=== PATIENT | male | born 1975 | race Caucasian/White ===

== ENCOUNTER 2025-03-17 10:24 | Emergency (ER) | payer MEDICARE, MEDICAID, SELFPAY ==
--- NOTE | 2025-03-17 10:38 | ED_ITS ---
HPI - Psych General Chief Complaint: Extremity Problem,Nontraumatic Stated Complaint: foot pain Time Seen by Provider: 03/17/25 10:37 Source: patient and EMS Mode of arrival: ambulatory Limitations: no limitations History of Present Illness HPI Narrative: a 49-year-old male with a history of smoking, hypertension arthritis, schizophrenia/ bipolar on aripiprazole was admitted at [facility] from 02/26/2025to 03/08/2025. he subsequently presented to Dr. Rosario vogt on 03/15/2025. His medications weight changed. He was taken off nifedipine and hydralazine. This morning when the patient got his medications they appear different. The patient -- blood concerned about his change of medications. He felt that someone was trying to change his medicines. -- Complains of leg swelling -- complains of joint pain -- patient is confused. no focal neuro deficit. on presentation he wanted to leave AMA while he was being questioned about his medications denies suicidal or homicidal ideation. Duration: constant History of same: Yes Relieving factors: none Exacerbating factors: none Context: recent drug abuse Associated symptoms: confusion Treatments prior to arrival: none Related Data Home Medications ?Medication ?Instructions ?Recorded ?Confirmed ?Last Taken ?Type aripiprazole 10 mg tablet mg 03/17/25 Unknown History losartan 50 mg tablet mg 03/17/25 Unknown History naproxen 500 mg tablet mg 03/17/25 Unknown History propranolol 40 mg tablet mg 03/17/25 Unknown History Allergies Allergy/AdvReac Type Severity Reaction Status Date / Time Penicillins Allergy Mild Rash Verified 03/17/25 10:53 Review of Systems 2 Review of Systems: vitals are stable All systems reviewed & are unremarkable except as noted in HPI and below Constitutional: Constitutional: Reports as per HPI and Reports no additional constitutional complaints Eyes: Eyes: Reports as per HPI and Reports no additional eye complaints ENT: Reports system reviewed and no additional complaints, except as documented and Reports as per HPI Cardiovascular: Cardiovascular: Reports as per HPI and Reports no additional cardiovascular complaints Respiratory: Respiratory: Reports as per HPI and Reports no additional respiratory complaints Gastrointestinal: Gastrointestinal: Reports as per HPI and Reports no additional gastrointestinal complaints Genitourinary: Genitourinary: Reports no additional male genitourinary complaints and Reports as per HPI Musculoskeletal: Musculoskeletal: Reports no additional musculoskeletal complaints, Reports as per HPI and Reports arthralgias Integumentary/Breasts: Skin/Breast: Reports system reviewed and no additional complaints, except as docu and Reports as per HPI Neurologic: Reports system reviewed and no additional complaints, except as documented and Reports as per HPI Psychiatric: Psychiatric: Reports no additional psychiatric complaints and Reports as per HPI Comments: denies suicidal or homicidal ideation. Patient is confused Endocrine: Endocrine: Reports no additional endocrine complaints and Reports as per HPI Hematologic/Lymphatic: Hematologic/Lymphatic: Reports no additional hematologic/lymphatic complaints and Reports as per HPI Allergic/Immunologic: Allergic/Immunologic: Reports no additional allergic/immunologic complaints and Reports as per HPI [facility] Past Medical History Medical History (Updated 03/17/25 @ 12:00 by Fredrick Velazquez MD) Schizophrenia Arthritis Hypertension Social History Social History (Updated 03/17/25 @ 11:21 by Fredrick Velazquez MD) Social History: smoker, amphetamine use Exam 2 Narrative: vitals are stable. Const: General: no acute distress Other: Patient is confused. HENMT: Head: normal to inspection Ears: external ears normal F franklyn/Nose/Sinus: Normal external nose present Mouth: Yes Normal oral and palatal mucosa present Throat: posterior oropharynx normal Eyes: Conjunctivae: conjunctivae normal Pupils: Equal, round and reactive pupils present EOM: EOMs intact bilaterally Direct Ophthalmoscopy: no photophobia Neck: Neck: normal visual inspection, no lymphadenopathy and no meningeal signs Chest: Chest palpation & inspection: normal inspection of the chest Resp: Effort & Inspection: normal respiratory effort Auscultation: clear to auscultation bilaterally Cardio: Rate: regular rate Rhythm: regular rhythm GI: GI Palp: Yes Soft to palpation Auscultation: normal bowel sounds O ther: No tenderness/ rigidity/ rebound. : General: Yes no CVA tenderness Back/Spine/Pelvis: Back: no CVA tenderness Skin: General skin exam: normal color Rashes: no rashes Wounds: no wounds Neuro: General: patient oriented x3, moves all extremities, no meningeal signs, no focal motor deficits and CN's II-XI intact bilaterally Cranial nerves: Yes Nystagmus not present Speech: normal speech Gait exam (Neuro): Normal gait present Extrem: General: normal to inspection and no clubbing, cyanosis or edema Psych: Mental Status: mental status grossly normal Other: Patient is confused. He thought that the morning medicines which he received were incorrect. No suicidal or homicidal ideation. Patient is talking to himself. Appears to have hallucinations. No delusions noted. Course Course Emergency Course: Altered mental status/ confusion Anemia transaminitis MDM - Psych MDM Narrative Medical decision making narrative: confusion anemia transaminitis Differential Diagnosis Differential diagnosis: Likely chronic schizophrenia Lab Data Attestation: I reviewed the patient's lab results. 03/17/25 10:38 03/17/25 10:38 Labs: Lab Results 03/17/25 03/17/25 03/17/25 Range/Units 10:38 10:39 11:16 WBC 7.6 (4.8-10.8) K/mm3 RBC 4.33 L (4.70-6.10) M/mm3 Hgb 12.5 L (14.0-18.0) g/dL Hct 38.8 L (40.0-54.0) % MCV 89.6 (78.0-102.0) fL MCH 28.9 (27.0-31.0) pg MCHC 32.2 (32-36) g/dL RDW 13.4 (11.6-14.4) % Plt Count 349 (150-420) K/mm3 MPV 9.4 (8.7-11.0) fl Immature Gran % (Auto) Not Reportable Neut % (Auto) Not Reportable Lymph % (Auto) Not Reportable [place] % (Auto) Not Reportable Eos % (Auto) Not Reportable Baso % (Auto) Not Reportable Lymph # (Auto) Not Reportable [place] # (Auto) Not Reportable Eos # (Auto) Not Reportable Baso # (Auto) Not Reportable Abs Immat Gran (auto) Not Reportable Absolute Neuts (auto) Not Reportable Absolute Nucleated RBC Not Reportable Total Counted 100 Neutrophils % (Manual) 62 (46-73) % Band Neutrophils % 0 (0-6) % Lymphocytes % (Manual) 24 (18-44) % Monocytes % (Manual) 7 (3-9) % Eosinophils % (Manual) 7 H (1-6) % Nucleated RBC % Not Reportable Abs Neuts (Manual) 4.71 (1.3-6.7) K/mm3 Abs Lymphs (Manual) 1.82 (1.1-4.5) K/mm3 Abs Monocytes (Manual) 0.53 (0.1-0.90) K/mm3 Absolute Eos (Manual) 0.53 H (0.02-0.50) K/mm3 Platelet Estimate Adequate (Adequate) Schistocytes Not Reportable PT 10.3 (9.50-12.1) Seconds INR 0.9 Sodium 141 (136-145) mmol/L Potassium 4.5 (3.5-5.1) mmol/L Chloride 104 (98-108) mmol/L Carbon Dioxide 29 (21-32) mmol/L Anion Gap 8 (4-12) mmol/L BUN 7 (7-18) mg/dL Creatinine 0.81 (0.70-1.30) mg/dL Estim Creat Clear Calc Not Reportable Estimated GFR > 60 (59 - ) Glucose 91 (70-99) mg/dL Calculated Osmolality 290 (285-295) mOsm/kg Lactic Acid 1.1 (0.4-2.0) mmol/L Calcium 9.2 (8.5-10.1) mg/dL Total Bilirubin 0.3 (0.00-1.00) mg/dL AST 23 (15-37) U/L ALT 71 H (16-63) U/L Alkaline Phosphatase 83 (46-116) U/L Troponin I 6.1 (0.00-60.4) ng/L Total Protein 7.0 (6.4-8.2) g/dL Albumin 3.6 (3.4-5.0) g/dL Lipase 19 (16-77) U/L TSH 1.97 (0.36-3.74) uIU/mL Urine Color Light yellow (Yellow) Urine Appearance Clear (Clear) Urine pH 7.0 (5.0-8.0) Ur Specific [place] <= 1.005 L (1.010-1.020) Urine Protein Negative (Negative) Urine Glucose (UA) Negative (Negative) Urine Ketones Negative (Negative) Ur Blood (Man) Negative (Negative) Urine Nitrate Negative (Negative) Urine Bilirubin Negative (Negative) Urine Urobilinogen 0.2 (0.2-1.0) mg/dL Leukocyte Esterase Rfl Negative (Negative) KATIE/UL Urine Opiates Screen Negative (Negative) Urine Methadone Screen Negative (Negative) Ur Barbiturates Screen Negative (Negative) Ur Phencyclidine Scrn Negative (Negative) Ur Amphetamine Screen Negative (Negative) U Benzodiazepines Scrn Negative (Negative) Urine Cocaine Screen Negative (Negative) U Cannabinoids Screen Negative (Negative) ECG Data EKG #1: ECG completion date: 03/17/25 ECG completion time: 10:50 Interpretation: normal sinus rhythm. Normal axis. No ST elevation. Prominent Q-waves in septal leads suggestive of an old anteroseptal infarct. Discharge Plan Discharge Clinical Impression: Transaminitis Altered mental status Qualifiers: Altered mental status type: disorientation Qualified Code(s): R41.0 - Disorientation, unspecified Patient Disposition: Home Condition: Stable Instructions: Antibiotic Form, Altered Mental Status (ED) Patient Language: Slovenian Prescriptions: No Action losartan 50 mg tablet propranolol 40 mg tablet naproxen 500 mg tablet aripiprazole 10 mg tablet Follow-up/Referrals: Bora Berumen MD [Primary Care Provider] - Time of Disposition: 12:00
--- NOTE | 2025-03-17 10:39 | ECG_ITS ---
Test Date: 2025-03-17 10:50:36 Measurements Intervals [place] Rate: 73 P: 68 ND: 149 QRS: 80 QRSD: 84 T: 75 QT: 378 QTc: 417 Interpretive Statements SINUS RHYTHM CANNOT R/O SEPTAL INFARCT, AGE INDETERMINATE PEAKED T WAVES- CONSIDER HYPERKALEMIA BASELINE ARTIFACT- I, III, AVR, AVL, AVF, V1-V2, V4-V6 ABNORMAL ECG No previous ECG available for comparison Electronically Signed On 03-17-2025 10:51:19 CDT by Darvin Chacko D.O.
[2025-03-17 10:52] LABS: Hematocrit 38.8 % (40.0-54.0); Hemoglobin 12.5 g/dL (14.0-18.0); Mean Corpuscular HGB Conc 32.2 g/dL (32-36); Mean Corpuscular Hemoglobin 28.9 pg (27.0-31.0); Mean Corpuscular Volume 89.6 fL (78.0-102.0); Mean Platelet Volume 9.4 fl (8.7-11.0); Platelet Count Result 349 K/mm3 (150-420); Red Blood Count 4.33 M/mm3 (4.70-6.10); Red Cell Distribution Width 13.4 % (11.6-14.4); White Blood Count 7.6 K/mm3 (4.8-10.8)
[2025-03-17 11:08] LABS: INR 0.9; Prothrombin Time 10.3 Seconds (9.50-12.1)
[2025-03-17] MEDS: HALOPERIDOL LACTATE 5 MG/ML VIAL 2.5 MG IM (11:10)
[2025-03-17 11:20] LABS: Band Neutrophils Percent 0 % (0-6); Eosinophils Absolute Manual 0.53 K/mm3 (0.02-0.50); Eosinophils Percent Manual 7 % (1-6); Lymphocytes Absolute Manual 1.82 K/mm3 (1.1-4.5); Lymphocytes Percent Manual 24 % (18-44); Monocytes Absolute Manual 0.53 K/mm3 (0.1-0.90); Monocytes Percent Manual 7 % (3-9); Neutrophils Absolute Manual 4.71 K/mm3 (1.3-6.7); Neutrophils Percent Manual 62 % (46-73); Platelet Estimate Adequate (Adequate); Total Cells Counted 100
[2025-03-17 11:24] LABS: Lactic Acid Reflex 1.1 mmol/L (0.4-2.0)
[2025-03-17 11:26] LABS: Alanine Aminotransferase 71 U/L (16-63); Albumin Level 3.6 g/dL (3.4-5.0); Alkaline Phosphatase 83 U/L (46-116); Anion Gap 8 mmol/L (4-12); Aspartate Amino Transferase 23 U/L (15-37); Bilirubin,Total 0.3 mg/dL (0.00-1.00); Blood Urea Nitrogen 7 mg/dL (7-18); Calcium 9.2 mg/dL (8.5-10.1); Carbon Dioxide 29 mmol/L (21-32); Chloride 104 mmol/L (98-108); Estimated Glomerular Filt Rate > 60; Glucose 91 mg/dL (70-99); Osmolality Calculated 290 mOsm/kg (285-295); Potassium 4.5 mmol/L (3.5-5.1); Sodium 141 mmol/L (136-145)
[2025-03-17 11:28] LABS: Lipase 19 U/L (16-77); Thyroid Stimulating Hormone 1.97 uIU/mL (0.36-3.74); Troponin I 6.1 ng/L (0.00-60.4)
[2025-03-17 11:32] LABS: Add Urine Microscopic? NO; Appearance Urine Clear (Clear); Bilirubin Urine Negative (Negative); Blood Urine Negative (Negative); Color Urine Light Yellow (Yellow); Glucose Urine UA Negative (Negative); Ketones Urine Negative (Negative); Leukocyte Esterase Ur Negative LEU/UL (Negative); Nitrate Urine Negative (Negative); Protein Urine Negative (Negative); Specific Grav Ur <= 1.005 (1.010-1.020); Urobilinogen Urine 0.2 mg/dL (0.2-1.0)
--- NOTE | 2025-03-17 11:32 | PC.NURSE ---
meal tray ordered for pt.
[2025-03-17 11:36] LABS: Amphetamine Screen Urine Negative (Negative); Barbiturate Screen Urine Negative (Negative); Benzodiazepines Screen Urine Negative (Negative); Cannabinoid Screen Urine Negative (Negative); Cocaine Screen Urine Negative (Negative); Methadone Screen Urine Negative (Negative); Opiate Screen Urine Negative (Negative); Phencyclidine Screen Urine Negative (Negative)
[2025-03-17 12:33] VITALS: BP 171/104; PULSE 86; RESP 18; TEMP 36.8; O2SAT 100
--- NOTE | 2025-03-17 12:40 | PC.NURSE ---
call to nazario lu for picking tech. explained workup given to pt. will picking tech marge
== END 2025-03-17 12:38 | disposition home or self-care (01) ==
PROVIDERS: Emergency Provider Internal Medicine Critical Care Medicine; PCP Family Medicine
DX: R74.01 Elevation of levels of liver transaminase levels (principal); R41.0 Disorientation, unspecified; I10 Essential (primary) hypertension; Z79.899 Other long term (current) drug therapy; Z79.1 Long term (current) use of non-steroidal anti-inflammatories (NSAID)
CPT/HCPCS: 36415; 80053; 80307; 81003; 83605; 83690; 84443; 84484; 85025; 85610; 93005; 96372; 99284; J1630

== ENCOUNTER 2025-10-16 08:55 | Emergency (ER) | payer MEDICARE, MEDICAID, SELFPAY ==
[2025-10-16] VITALS (25 sets, daily range): BP systolic 107–152; BP diastolic 69–104; PULSE 64–70; RESP 15–18; TEMP 36.4–37.1; O2SAT 95–100
--- NOTE | ~2025-10-16 | CT_ITS ---
CHEST ABDOMEN PELVIS WITH CONTRAST CLINICAL HISTORY: RUQ abdominal pain, intermittent chest pain, hematuria . COMPARISON: None TECHNIQUE: Helical CT performed from thoracic inlet to symphysis pubis 100 mL Omnipaque 350 Coronal, sagittal reformats. Multi planar MIPS CT images acquired with automatic exposure control for dose reduction DLP: 771 mGy-cm FINDINGS: CHEST- Lungs/Pleura: A few calcified granuloma right lung. Tiny nodule right middle lobe anteriorly, no surveillance indicated given small size. Thoracic Aorta: No dissection. No aneurysm. Pulmonary arteries: Normal caliber. Heart: Mildly enlarged. Tracheobronchial tree: Patent. Nodes: No enlarged nodes. Right hilar calcification. Bones: No acute bony abnormality. Soft tissues: Absent right pectoralis muscles. ABDOMEN/PELVIS- Liver: Enlarged. Steatosis. Gallbladder: Unremarkable. Spleen: Unremarkable. Pancreas: Unremarkable. Adrenal glands: Unremarkable. Kidneys: Right kidney- No hydronephrosis. No renal stones. Focal ill-defined heterogeneous enhancement. Left kidney- No hydronephrosis. No renal stones. Distal esophagus/stomach: Unremarkable. Small bowel loops: Normal caliber and wall thickness. Colon: Diverticula. Normal caliber and wall thickness. Normal RLQ appendix. Nodes: No enlarged nodes. Peritoneum: No ascites. No free air. Urinary bladder: Wall thickening. Intramural abscess anteriorly. 3 cm. Prostate: Unremarkable. Bones: No acute bony abnormality. Soft tissues: Unremarkable. Aorta: No aneurysm or dissection. Atherosclerotic disease. IVC: Unremarkable. Main portal vein/SMV/splenic vein: Patent. IMPRESSION: CHEST- 1. No acute abnormality. 2. Absent right pectoralis muscles. ABDOMEN/PELVIS- 1. 3 cm abscess anterior wall urinary bladder. Possibly sequela of prior diverticulitis. 2. Superimposed cystitis. 3. Pyelonephritis right kidney. Reviewed, dictated and finalized at location R. PT GIRL IMPRESSION: CHEST- 1. No acute abnormality. 2. Absent right pectoralis muscles. ABDOMEN/PELVIS- 1. 3 cm abscess anterior wall urinary bladder. Possibly sequela of prior diver ticulitis. 2. Superimposed cystitis. 3. Pyelonephritis right kidney.
--- OUTSIDE RECORDS SUMMARY | 2025-10-16 08:57 | XMS_ITS ---
Author Organization Unknown Address [address] [place] [address] [phone] Phone Care Team Providers Care State Editor Name Role Phone CEE Booth Attending Unavailable Social History Type Status Start Date End Date Code Code Syst em Sex Male Medications Medication Start Date End Date Route Frequency Dose Code Code System Medication Instructions Home Meds ARIPiprazole 10MG Oral Tablet 06/10/2025 Unknown ORAL ONCE A DAY 10 MILLIGRAMS [id number] RxNorm TAKE 10 MILLIGRAMS ORAL ONCE A DAY Acetaminophen 325MG Oral Tablet 06/10/2025 Unknown ORAL NEEDED EVERY 6 HOURS 650 MILLIGRAMS [id number] RxNorm TAKE 650 MILLIGRAMS ORAL NEEDED EVERY 6 HOURS Losartan Potassium 50MG Oral Tablet 06/10/2025 Unknown ORAL ONCE A DAY 50 MILLIGRAMS [id number] RxNorm TAKE 50 MILLIGRAMS ORAL ONCE A DAY Naprosyn 500MG Oral Tablet 06/10/2025 Unknown ORAL TWICE A DAY 500 MILLIGRAMS 942165 RxNorm TAKE 500 MILLIGRAMS ORAL TWICE A DAY Propranolol HCl 40MG Oral Tablet 06/10/2025 Unknown ORAL TWICE A DAY 40 MILLIGRAMS 635624 RxNorm TAKE 40 MILLIGRAMS ORAL TWICE A DAY hydrOXYzine HCl 25MG Oral Tablet 06/10/2025 Unknown ORAL NEEDED EVERY 8 HOURS 25 MILLIGRAMS 963942 RxNorm TAKE 25 MILLIGRAMS ORAL NEEDED EVERY 8 HOURS traZODone hydrochloride 50MG Oral Tablet 06/10/2025 Unknown ORAL ONCE A DAY 50 MILLIGRAMS 641699 RxNorm TAKE 50 MILLIGRAMS ORAL ONCE A DAY Hospital Discharge Instructions Should you have any questions prior to discharge, please contact a member of your healthcare team. If you have left the hospital and have any questions, please contact your primary care physician. Reason For Referral No Data Found Allergies and Adverse Reactions Allergy Substance Reaction Severity Start Date Concern Status Co de Code System PCN (penicillin) Active 635102427 SNOME D-CT Plan of Treatment Colonoscopy 06/10/2025 Encounters Encounter Diagnosis Start Date Code Code Sys tem Encounter for screening for malignant neoplasm of colo n 05/14/2025 SNOMED-CT Personal Care Team Section
--- OUTSIDE RECORDS SUMMARY | 2025-10-16 08:58 | XMS_ITS ---
Author Organization Unknown Address [address] [place] [address] [phone] Phone Care Team Providers Care Drop Hammer Operator Helper Name Role Phone EVELIA Noble Attending Unavailable MELLISA CARUSO CLINICAL STAFF RN Unavailable NO PCP Primary Unavailable Social History Type Status Start Date End Date Code Code Syst em Sex Male Vital Signs Vital Sign Value Unit Chaplin Value Chaplin Unit Date/Time Recent/Initial? Code Code System Body Mass Index 28.06 kg/m2 06/10/2025 13:46 Most Recent 45838 -5 LOINC Body Mass Index 27.91 kg/m2 06/01/2025 14:24 Initial 73878 -5 LOINC Systolic Blood Pressure 124 mm[Hg] 06/10/2025 13:46 Initial 8480- 6 LOINC Diastolic Blood Pressure 70 mm[Hg] 06/10/2025 13:46 Initial 8462- 4 LOINC Body Surface Area 2.05 m2 06/10/2025 13:46 Most Recent 3140- 1 LOINC Body Surface Area 2.04 m2 06/01/2025 14:24 Initial 3140- 1 LOINC Height 175.260 0 cm 69.00 in 06/10/2025 13:46 Most Recent 8302- 2 LOINC Height 175.260 0 cm 69.00 in 06/01/2025 14:24 Initial 8302- 2 LOINC O2 Saturation 97 % 2024 13:46 Initial 98089 -5 LOINC Pulse 75.0 /min 06/10/2025 13:46 Initial 8867- 4 LOINC Respiration 18 /min 06/10/20 13:46 Initial 9279- 1 LOINC Temperature 36.5 Yumiko 97.7 F 06/10/20 13:46 Initial 8310- 5 LOINC Weight 86.18 kg 190.00 lbs 06/10/2025 13:46 Most Recent 48415 -7 [facility] Weight 85.73 kg 189.00 lbs 06/01/2025 14:24 Initial 50543 -7 [facility] Medications Medication Start Date End Date Route Frequency Dose Code Code System Medication Instructions Home Meds ARIPiprazole 10MG Oral Tablet 06/10/2025 Unknown ORAL ONCE A DAY 10 MILLIGRAMS [id number] RxNorm TAKE 10 MILLIGRAMS ORAL ONCE A DAY Acetaminophen 325MG Oral Tablet 06/10/2025 Unknown ORAL NEEDED EVERY 6 HOURS 650 MILLIGRAMS 936017 RxNorm TAKE 650 MILLIGRAMS ORAL NEEDED EVERY 6 HOURS Losartan Potassium 50MG Oral Tablet 06/10/2025 Unknown ORAL ONCE A DAY 50 MILLIGRAMS 583803 RxNorm TAKE 50 MILLIGRAMS ORAL ONCE A DAY Naprosyn 500MG Oral Tablet 06/10/2025 Unknown ORAL TWICE A DAY 500 MILLIGRAMS 436676 RxNorm TAKE 500 MILLIGRAMS ORAL TWICE A DAY Propranolol HCl 40MG Oral Tablet 06/10/2025 Unknown ORAL TWICE A DAY 40 MILLIGRAMS 763344 RxNorm TAKE 40 MILLIGRAMS ORAL TWICE A DAY hydrOXYzine HCl 25MG Oral Tablet 06/10/2025 Unknown ORAL NEEDED EVERY 8 HOURS 25 MILLIGRAMS 568237 RxNorm TAKE 25 MILLIGRAMS ORAL NEEDED EVERY 8 HOURS traZODone hydrochloride 50MG Oral Tablet 06/10/2025 Unknown ORAL ONCE A DAY 50 MILLIGRAMS 641912 RxNorm TAKE 50 MILLIGRAMS ORAL ONCE A DAY Hospital Discharge Instructions Should you have any questions prior to discharge, please contact a member of your healthcare team. If you have left the hospital and have any questions, please contact your primary care physician. Reason For Referral No Data Found Procedures Procedure Name Date Status Code Code Syste m Hand surgery completed [id number] SNOMEDCT Anesthesia for lower intesti nal endoscopic procedures, endoscope introduce 06/10/2025 completed 20613 CPT Colonoscopy, flexible; with biopsy, single or multiple 06/10/2025 completed 05738 CPT Allergies and Adverse Reactions Allergy Substance Reaction Severity Start Date Concern Status Co de Code System PCN (penicillin) Active 682869504 SNOME D-CT Plan of Treatment Colonoscopy 06/10/2025 Encounters Encounter Diagnosis Start Date Code Code Sys tem Encounter for screening for malignant neoplasm of colo n 06/10/2025 SNOMED-CT Personal Care Team Section Procedures Notes [facility] 06/10/2025 14:47 ASHER EMANUEL MD, FACG, FACP COLONOSCOPY Date of Service: 06/10/2025 INDICATION: Screening for colon cancer. POST-OP: One small colon polyp removed. Mild diverticulosis. SEDATION: Per Anesthesia PREP: Good. With the patient in the left lateral decubitus position, the Olympus [id number] colonoscope was introduced into the rectum and advanced easily to the Terminal Ileum. Careful inspection of the mucosa was made upon insertion and withdrawal of the endoscope. FINDINGS: Terminal ileum: distal 5 cm normal. Cecum and rectum including retroflexion normal. Ascending colon, transverse colon, descending colon, sigmoid colon: mild diverticulosis. Ascending colon: diminutive polyp removed with cold jumbo biopsy forceps. No masses, AVMs, colitis seen. No complications, blood loss or implants. ASSESSMENT AND PLAN: A. Mild diverticulosis: asymptomatic; observe. B. Screening for colon cancer: - No family history of colon cancer - Patient has never had colonoscopy - Screening colonoscopy 06/10/2025 with one diminutive colon poly removed - If adenoma surveillance colonoscopy 5 years otherwise screening colonoscopy in 10 years Thank you for allowing me to care for your patient. He will follow-up with Sr. Berumen as needed. Asher Emanuel M.D. (c) [phone]
--- NOTE | 2025-10-16 09:02 | ECG_ITS ---
Test Date: 2025-10-16 09:12:10 Measurements Intervals [place] Rate: 65 P: 45 IN: 161 QRS: 13 QRSD: 83 T: 33 QT: 397 QTc: 415 Interpretive Statements SINUS RHYTHM POSSIBLE LEFT ATRIAL ENLARGEMENT [-0.1mV P-WAVE IN V1/V2] SEPTAL MYOCARDIAL INFARCTION , PROBABLY OLD [40+ ms Q WAVE IN V1/V2] Compared to ECG 03/17/2025 10:50:36 No significant changes Electronically Signed On 10-18-2025 12:09:42 CROSSING WATCHMAN by Cuauhtemoc Rivers M.D.
--- NOTE | 2025-10-16 09:06 | ED_ITS ---
HPI - General Adult General Chief complaint: Urogenital-Male Stated complaint: blood in urine; rib pain Time Seen by Provider: 10/16/25 08:57 History of Present Illness HPI narrative: Leroy is a 50M with a PMH of schizophrenia, arthritis, HTN, that presented to the ED from [facility] not feeling well. A few days ago he had epigastric pain and chest pain and many episodes of vomiting. The CP improved but he now has dark urine, hematospermia, right flank pain, and RUQ pain as well as weakness. No dyspnea, fevers or hematochezia reported. Related Data Home Medications ?Medication ?Instructions ?Recorded ?Confirmed ?Last Taken ?Type aripiprazole 10 mg tablet mg 03/17/25 Unknown History losartan 50 mg tablet mg 03/17/25 Unknown History naproxen 500 mg tablet mg 03/17/25 Unknown History propranolol 40 mg tablet mg 03/17/25 Unknown History Allergies Allergy/AdvReac Type Severity Reaction Status Date / Time Penicillins Allergy Mild Rash Verified 03/17/25 10:53 Review of Systems 2 Review of Systems: All systems reviewed & are unremarkable except as noted in HPI and below [facility] Past Medical History Medical History Schizophrenia Arthritis Hypertension Social History Social History Social History: smoker, amphetamine use Exam 2 Const: General: cooperative, healthy appearing, comfortable, no acute distress, well developed, alert, awake and Physically active O rientation/consciousness: oriented to person, oriented to place and oriented to time HENMT: Head: normal to inspection, normocephalic and atraumatic Ears: h earing grossly normal bilaterally and external ears normal Face/Nose/Sinus: N ormal external nose present Eyes: General: appearance normal, both eyes and all related structures P eriorbital: periorbital findings normal Sclera: sclerae normal Pupils: E qual, round and reactive pupils present Neck: Neck: normal visual inspection Chest: Chest palpation & inspection: normal inspection of the chest Resp: Effort & Inspection: normal respiratory effort, able to speak in complete sentences and no respiratory distress Auscultation: clear to auscultation bilaterally Cardio: Jugular venous distension: no JVD Rate: regular rate Rhythm: r egular rhythm GI: Inspection: non-distended GI Palp: Yes Soft to palpation, Yes Tenderness to palpation present (GI), No Guarding due to palpation present (GI) and No Rebound tenderness present Auscultation: normal bowel sounds Other: +Kurtz sign. : Other: Right flank pain Skin: General skin exam: normal color and no rashes or lesions noted Neuro: General: oriented to person, oriented to place and oriented to time Cranial nerves: Yes Equal, round and reactive pupils present Extrem: General: normal to inspection Other: right hand deformity clubbed fingers Course Course Emergency Course: Ordered fluids, pain meds, labs, EKG and CT. EKG showed NSR with a rate of 65, normal axis, and no ST elevation/depression CT chest/abdomen/pelvis: IMPRESSION: CHEST- 1. No acute abnormality. 2. Absent right pectoralis muscles. ABDOMEN/PELVIS- 1. 3 cm abscess anterior wall urinary bladder. Possibly sequela of prior diverticulitis. 2. Superimposed cystitis. 3. Pyelonephritis right kidney. I spoke with Dr. Hidalgo of urology that recommended transfer and admit to hospitalist and to place a catheter Leroy was transferred to [place] for Urology services. Vital Signs Vital signs: Vital Signs Temperature 97.5 F L 10/16/25 08:55 Pulse Rate 65 10/16/25 08:55 Respiratory Rate 16 10/16/25 08:55 Blood Pressure 107/76 10/16/25 08:55 Pulse Oximetry 99 10/16/25 08:55 Oxygen Delivery Room Air 10/16/25 08:55 Temperature 98.7 F 10/16/25 13:18 Pulse Rate 66 10/16/25 13:18 Respiratory Rate 18 10/16/25 13:18 Blood Pressure 128/77 10/16/25 13:18 Pulse Oximetry 96 10/16/25 13:18 Oxygen Delivery Room Air 10/16/25 13:18 Medical Decision Making Vital Signs Vital Signs: Vital Signs Temperature 97.5 F L 10/16/25 08:55 Pulse Rate 65 10/16/25 08:55 Respiratory Rate 16 10/16/25 08:55 Blood Pressure 107/76 10/16/25 08:55 Pulse Oximetry 99 10/16/25 08:55 Oxygen Delivery Room Air 10/16/25 08:55 Temperature 98.7 F 10/16/25 13:18 Pulse Rate 66 10/16/25 13:18 Respiratory Rate 18 10/16/25 13:18 Blood Pressure 128/77 10/16/25 13:18 Pulse Oximetry 96 10/16/25 13:18 Oxygen Delivery Room Air 10/16/25 13:18 Lab Data 10/16/25 09:09 10/16/25 09:09 Labs: Lab Results 10/16/25 10/16/25 10/16/25 Range/Units 09:02 09:09 09:19 WBC 7.1 (4.8-10.8) K/mm3 RBC 4.47 L (4.70-6.10) M/mm3 Hgb 13.1 L (14.0-18.0) g/dL Hct 38.9 L (40.0-54.0) % MCV 87.0 (78.0-102.0) fL MCH 29.3 (27.0-31.0) pg MCHC 33.7 (32-36) g/dL RDW 12.1 (11.6-14.4) % Plt Count 333 (150-420) K/mm3 MPV 9.4 (8.7-11.0) fl Immature Gran % (Auto) 0.6 H (0.0-0.0) % Neut % (Auto) 59.3 (50.0-70.0) % Lymph % (Auto) 23.9 (18.0-42.0) % [place] % (Auto) 9.2 (2.0-11.0) % Eos % (Auto) 6.2 H (1.0-6.0) % Baso % (Auto) 0.8 (0.0-1.0) % Lymph # (Auto) 1.69 (1.10-4.50) K/mm3 [place] # (Auto) 0.65 (0.10-0.90) K/mm3 Eos # (Auto) 0.44 (0.02-0.50) K/mm3 Baso # (Auto) 0.06 (0.00-0.10) K/mm3 Abs Immat Gran (auto) 0.04 H (0.00-0.00) K/mm3 Absolute Neuts (auto) 4.19 (1.70-7.20) K/mm3 Absolute Nucleated RBC 0.00 (0.00-0.00) K/mm3 Nucleated RBC % 0.0 (0-0.0) % Sodium 139 (137-145) mmol/L Potassium 3.8 (3.4-5.0) mmol/L Chloride 102 (98-107) mmol/L Carbon Dioxide 26 (22-30) mmol/L Anion Gap 11 (4-12) mmol/L BUN 14 (9-20) mg/dL Creatinine 0.76 (0.7-1.3) mg/dL Estim Creat Clear Calc 111 ml/min Estimated GFR > 60 (59 - ) Glucose 116 H (65-110) mg/dL Calculated Osmolality 289 (285-295) mOsm/kg Calcium 8.9 (8.4-10.2) mg/dL Total Bilirubin 1.2 (0.2-1.3) mg/dL AST 38 (17-59) U/L ALT 51 H (6-50) U/L Alkaline Phosphatase 81 (38-126) U/L Troponin I < 0.012 (0.000-0.034) ng/mL Total Protein 6.8 (6.3-8.2) g/dL Albumin 4.1 (3.5-5.1) g/dL Urine Color Dark yellow (Yellow) Urine Appearance Cloudy A (Clear) Urine pH 5.5 (5.0-8.0) Ur Specific [place] 1.025 H (1.010-1.020) Urine Protein Trace H (Negative) Urine Glucose (UA) Negative (Negative) Urine Ketones Negative (Negative) Ur Blood (Man) 2+ H (Negative) Urine Nitrate Negative (Negative) Urine Bilirubin Negative (Negative) Urine Urobilinogen 1.0 (0.2-1.0) mg/dL Leukocyte Esterase Rfl 2+ H (Negative) KATIE/UL Urine RBC 3-5 H (0-2) /hpf Urine WBC >75 H (0-3) /hpf Urine Bacteria 1+ H (None) /hpf Urine Mucus Few H /lpf C. trachomatis (PCR) Pending N. gonorrhoeae (PCR) Pending Discharge Plan Discharge Clinical Impression: Urinary tract infection, Acute pyelonephritis, Abscess of bladder Patient Disposition: Acute Care Hospital Condition: Serious Patient Language: Kinyarwanda Prescriptions: No Action losartan 50 mg tablet propranolol 40 mg tablet naproxen 500 mg tablet aripiprazole 10 mg tablet Follow-up/Referrals: Bora Berumen MD [Primary Care Provider, Internal Medicine]
[2025-10-16 09:18] LABS: Hematocrit 38.9 % (40.0-54.0); Hemoglobin 13.1 g/dL (14.0-18.0); Immature Granulocyte Percent A 0.6 % (0.0-0.0); Lymphocytes Absolute Auto 1.69 K/mm3 (1.10-4.50); Mean Corpuscular HGB Conc 33.7 g/dL (32-36); Mean Corpuscular Hemoglobin 29.3 pg (27.0-31.0); Mean Corpuscular Volume 87.0 fL (78.0-102.0); Nucleated Red Blood Cells Absolute Auto 0.00 K/mm3 (0.00-0.00); Nucleated Red Blood Cells Perc 0.0 % (0-0.0); Platelet Count Result 333 K/mm3 (150-420); Red Blood Count 4.47 M/mm3 (4.70-6.10); White Blood Count 7.1 K/mm3 (4.8-10.8)
[2025-10-16 09:19] LABS: Add Urine Microscopic? YES; Appearance Urine Cloudy (Clear); Glucose Urine UA Negative (Negative); Leukocyte Esterase Ur 2+ LEU/UL (Negative); Nitrate Urine Negative (Negative); Specific Grav Ur 1.025 (1.010-1.020)
[2025-10-16] MEDS: SODIUM CHLORIDE 0.9% IV 1,000 ML 999 ML IV CONT (09:21)
[2025-10-16] MEDS: MORPHINE SULFATE (*CRX) 4 MG/ML INJ 2 MG IV PUSH (09:22)
[2025-10-16 09:29] LABS: Alanine Aminotransferase 51 U/L (6-50); Albumin Level 4.1 g/dL (3.5-5.1); Alkaline Phosphatase 81 U/L (38-126); Anion Gap 11 mmol/L (4-12); Aspartate Amino Transferase 38 U/L (17-59); Blood Urea Nitrogen 14 mg/dL (9-20); Calcium 8.9 mg/dL (8.4-10.2); Carbon Dioxide 26 mmol/L (22-30); Chloride 102 mmol/L (98-107); Estimated CRCL calculation 111 ml/min; Estimated Glomerular Filt Rate > 60; Glucose 116 mg/dL (65-110); Osmolality Calculated 289 mOsm/kg (285-295); Potassium 3.8 mmol/L (3.4-5.0); Sodium 139 mmol/L (137-145); Total Protein 6.8 g/dL (6.3-8.2)
[2025-10-16 09:41] LABS: Troponin I < 0.012 ng/mL (0.000-0.034)
--- OUTSIDE RECORDS SUMMARY | 2025-10-16 10:08 | XMS_ITS ---
Author Organization Unknown Address [address] [place] [phone] Phone Care Team Providers [employer]ic Name Role Phone EVELIA Noble Attending Unavailable MELLISA CARUSO [employer]TER Unavailable NO PCP Primary Unavailable Social History Type Status Start Date End Date Code Code Syst em Sex Male Vital Signs Vital Sign Value Unit Griffith Value Griffith Unit Date/Time Recent/Initial? Code Code System Body Mass Index 28.06 kg/m2 06/10/2025 13:46 Most Recent 60389 -5 LOINC Body Mass Index 27.91 kg/m2 06/01/2025 14:24 Initial 70889 -5 LOINC Systolic Blood Pressure 124 mm[Hg] [...] O2 Saturation 97 % 2024 13:46 Initial 66020 -5 LOINC Pulse 75.0 /min 06/10/2025 13:46 Initial 8867- 4 LOINC Respiration 18 /min 06/10/20 13:46 Initial 9279- 1 LOINC Temperature 36.5 Yumiko 97.7 F 06/10/20 13:46 Initial 8310- 5 LOINC Weight 86.18 kg 190.00 lbs 06/10/2025 13:46 Most Recent 22087 -7 [facility] Weight 85.73 kg 189.00 lbs 06/01/2025 14:24 Initial 80965 -7 [facility] Medications Medication Start Date End Date Route Frequency Dose Code Code System Medication Instructions Home Meds ARIPiprazole 10MG Oral Tablet 06/10/2025 Unknown ORAL ONCE A DAY 10 MILLIGRAMS 374506 RxNorm TAKE 10 MILLIGRAMS ORAL ONCE A DAY Acetaminophen 325MG Oral Tablet 06/10/2025 Unknown ORAL NEEDED EVERY 6 HOURS 650 MILLIGRAMS 189864 RxNorm TAKE 650 MILLIGRAMS ORAL NEEDED EVERY 6 HOURS Losartan Potassium 50MG Oral Tablet 06/10/2025 Unknown ORAL ONCE A DAY 50 MILLIGRAMS 345956 RxNorm TAKE 50 MILLIGRAMS ORAL ONCE A DAY Naprosyn 500MG Oral Tablet 06/10/2025 Unknown ORAL TWICE A DAY 500 MILLIGRAMS 559204 RxNorm TAKE 500 MILLIGRAMS ORAL TWICE A DAY Propranolol HCl 40MG Oral Tablet 06/10/2025 Unknown ORAL TWICE A DAY 40 MILLIGRAMS 439835 RxNorm TAKE 40 MILLIGRAMS ORAL TWICE A DAY hydrOXYzine HCl 25MG Oral Tablet 06/10/2025 Unknown ORAL NEEDED EVERY 8 HOURS 25 MILLIGRAMS 704034 RxNorm TAKE 25 MILLIGRAMS ORAL NEEDED EVERY 8 HOURS traZODone hydrochloride 50MG Oral Tablet 06/10/2025 Unknown ORAL ONCE A DAY 50 MILLIGRAMS 219310 RxNorm TAKE 50 MILLIGRAMS ORAL ONCE A DAY Hospital Discharge Instructions Should you have any questions prior to discharge, please contact a member of your healthcare team. If you have left the hospital and have any questions, please contact your primary care physician. Reason For Referral No Data Found Procedures Procedure Name Date Status Code Code Syste m Hand surgery completed 6092353921 SNOMEDCT Anesthesia for lower intesti nal endoscopic procedures, endoscope introduce 06/10/2025 completed 32258 CPT Colonoscopy, flexible; with biopsy, single or multiple 06/10/2025 completed 95135 CPT Allergies and Adverse Reactions Allergy Substance Reaction Severity Start Date Concern Status Co de Code System PCN (penicillin) Active [id number] SNOME D-CT Plan of Treatment Colonoscopy 06/10/2025 Encounters Encounter Diagnosis Start Date Code Code Sys tem Encounter for screening for malignant neoplasm of colo n 06/10/2025 SNOMED-CT Personal Care Team Section Procedures Notes [facility] 06/10/2025 14:47 ASHER EMANUEL MD, FACG, FACP COLONOSCOPY Date of Service: 06/10/2025 INDICATION: Screening for colon cancer. POST-OP: One small colon polyp removed. Mild diverticulosis. SEDATION: Per Anesthesia PREP: Good. With the patient in the left lateral decubitus position, the Olympus [id number] colonoscope was introduced into the rectum and [...] Berumen as needed. Asher Emanuel M.D. (c) [phone]
[2025-10-16] MEDS: cefTRIAXone 1 GM in SODIUM CHLORIDE 0.9% IV 50 ML 100 ML IVPB (10:20)
--- NOTE | 2025-10-18 12:49 | PC.NURSE ---
FINAL URINE CULTURE NO GROWTH
[2025-10-19 13:46] LABS: Bilirubin,Total 0.1 mg/dL (0.2-1.3)
== END 2025-10-16 13:18 | disposition short-term general hospital (02) ==
LOC: CHSED 10:06
PROVIDERS: Emergency Provider Family Medicine; PCP Family Medicine
DX: N10 Acute pyelonephritis (principal); N30.80 Other cystitis without hematuria; I10 Essential (primary) hypertension; Z11.3 Encounter for screening for infections with a predominantly sexual mode of transmission
CPT/HCPCS: 36415; 71260; 74177; 80053; 81001; 84484; 85025; 87086; 87491; 87591; 93005; 96361; 96365; 96375; 99285; J0696; J2270; J7030; Q9967

== ENCOUNTER 2025-11-04 09:52 | Outpatient (CLI) | payer MEDICARE, MEDICAID, SELFPAY ==
[2025-11-04 10:13] LABS: Hematocrit 41.4 % (40.0-54.0); Hemoglobin 13.6 g/dL (14.0-18.0); Immature Granulocyte Percent A 0.4 % (0.0-0.0); Lymphocytes Absolute Auto 2.18 K/mm3 (1.10-4.50); Mean Corpuscular HGB Conc 32.9 g/dL (32-36); Mean Corpuscular Hemoglobin 28.8 pg (27.0-31.0); Mean Corpuscular Volume 87.7 fL (78.0-102.0); Nucleated Red Blood Cells Absolute Auto 0.00 K/mm3 (0.00-0.00); Nucleated Red Blood Cells Perc 0.0 % (0-0.0); Platelet Count Result 352 K/mm3 (150-420); Red Blood Count 4.72 M/mm3 (4.70-6.10); White Blood Count 9.3 K/mm3 (4.8-10.8)
[2025-11-04 10:14] LABS: Add Urine Microscopic? YES; Appearance Urine Clear (Clear); Glucose Urine UA Negative (Negative); Leukocyte Esterase Ur Trace (Negative); Nitrate Urine Negative (Negative); Specific Grav Ur 1.010 (1.010-1.020)
[2025-11-04 10:32] LABS: MALB Creatinine Ratio 8.4 mg/g (0-30)
[2025-11-04 10:54] LABS: Alanine Aminotransferase 28 U/L (6-50); Albumin Level 4.6 g/dL (3.5-5.1); Alkaline Phosphatase 51 U/L (38-126); Anion Gap 10 mmol/L (4-12); Aspartate Amino Transferase 27 U/L (17-59); Bilirubin,Total 0.3 mg/dL (0.2-1.3); Blood Urea Nitrogen 16 mg/dL (9-20); Calcium 9.6 mg/dL (8.4-10.2); Carbon Dioxide 23 mmol/L (22-30); Chloride 106 mmol/L (98-107); Estimated Glomerular Filt Rate > 60; Glucose 83 mg/dL (65-110); Osmolality Calculated 288 mOsm/kg (285-295); Potassium 4.6 mmol/L (3.4-5.0); Sodium 139 mmol/L (137-145); Total Protein 7.0 g/dL (6.3-8.2)
[2025-11-04 11:26] LABS: Prostate Specific Antigen 2.3 ng/mL (< OR = 4.0); Thyroid Stimulating Hormone 2.250 uIU/mL (0.465-4.680)
== END 2025-11-04 09:53 | disposition home or self-care (01) ==
PROVIDERS: PCP Family Medicine; Visit Provider Family Medicine
DX: I10 Essential (primary) hypertension (principal); Z12.5 Encounter for screening for malignant neoplasm of prostate
CPT/HCPCS: 36415; 80053; 81001; 82043; 84153; 84443; 85025; G0103